=== PATIENT | male | born 1945 | race Caucasian/White ===

== ENCOUNTER 2017-12-24 06:44 | Day surgery (SDC) | payer OTHER ==
[2017-12-24] MEDS ORDERED: ASPIRIN EC 325 MG TAB PO ONE (06:50)
[2017-12-24] MEDS ORDERED: methylPREDNISolone SOD SUCC 125 MG/2 ML VIAL IVP ONE (06:50)
[2017-12-24] MEDS ORDERED: DIAZEPAM 5 MG TAB PO ONE (06:50)
[2017-12-24] MEDS ORDERED: NS 1,000 ML IV ONE (06:50)
[2017-12-24] MEDS ORDERED: FAMOTIDINE 20 MG/NACL 50 ML IV ONE (06:50)
--- NOTE | 2017-12-24 07:29 | CPEKG ---
Heart Rate: 77 RR Interval: 779 P-R Interval: 180 QRSD Interval: 80 QT Interval: 384 QTC Interval: 435 P [place]: 68 QRS [place]: -5 T Wave [place]: 55 EKG Severity - BORDERLINE ECG - EKG Impression: SINUS RHYTHM EKG Impression: BORDERLINE R WAVE PROGRESSION, ANTERIOR LEADS Electronically Signed By: Harshad Rhoades 24-Dec-2017 13:06:53
[2017-12-24 07:58] LABS: PLATELET COUNT 237 10^3/uL (150-400)
[2017-12-24 08:11] LABS: INR 1.12 (0.83-1.16); PROTIME(PATIENT) 14.6 SEC (12.0-15.0)
--- NOTE | 2017-12-24 08:35 | PDHPUP ---
History & Physical Update H&P update statement: This history and physical update is based on an assessment of the patient which was completed after admission or registration (within 24 hours), but prior to the surgery/procedure. H&P update: H&P reviewed & patient examined, no change in patient's condition since H&P completed
--- NOTE | 2017-12-24 08:36 | PDPROPOC ---
Sedation Plan of Care Sedation Plan of Care: vital signs stable, mental status noted, patient educated of risks, benefits, alternatives, patient can tolerate sedation ASA Classification: ASA 2 Planned drugs: fentanyl, midazolam Mallampati Score: Class 2 Mallampati Reference Image: Patient passed 3-3-2 rule?: Yes
[2017-12-24] MEDS ORDERED: LIDOCAINE 1% 300 MG/30 ML SDV ONE (08:44)
[2017-12-24] MEDS ORDERED: fentaNYL 100 MCG/2 ML INJ ONE (08:44)
[2017-12-24] MEDS ORDERED: MIDAZOLAM 2 MG/2 ML VIAL ONE (08:45)
[2017-12-24] MEDS ORDERED: IOPAMIDOL (ISOVUE-370) 150 ML BTL IV ONE (08:45)
[2017-12-24] MEDS ORDERED: ALBUTEROL INH PREPACK MDI TAKEHOME PRN (10:02)
[2017-12-24] MEDS ORDERED: ATROPINE SULFATE 1 MG/10 ML SYR IVP PRN (10:02)
[2017-12-24] MEDS ORDERED: NITROGLYCERIN 0.4 MG BTL SL PRN (10:02)
[2017-12-24] MEDS ORDERED: HYDROCODONE/APAP 5/325 TAB PO PRN (10:02)
[2017-12-24] MEDS ORDERED: OXYCODONE/APAP 5/325 TAB PO PRN (10:02)
[2017-12-24] MEDS ORDERED: ONDANSETRON 4 MG/2 ML VIAL IVP PRN (10:02)
--- NOTE | 2017-12-24 10:15 | CPIP ---
[f rep st] INVASIVE CARDIAC PROCEDURE DATE OF PROCEDURE: 12/24/2017 PROCEDURE: 1. Coronary angiography. 2. Left ventriculography. INDICATION: Abnormal stress test. ACCESS: Patient was prepped and draped in the sterile fashion. 1% lidocaine was used to anesthetize the right inguinal region. A 6-[place] introducer sheath was placed selectively into the right commo n femoral artery via modified Seldinger technique. CORONARY ANGIOGRAPHY: A 6-[place] JL4 was advanced to the left main coronary artery and images obtain ed. The left main coronary artery bifurcated into an LAD and circumflex coronary arteries. The left main coronary artery appeared normal. The left anterior descending coronary artery gave rise to 1 p rominent diagonal branch as well as several smaller diagonal arteries. The left anterior descending c oronary artery was 100% occluded in the mid vessel just after the takeoff of the first diagonal arter y. The left anterior descending coronary artery is being filled by [id number] as well as right-to- left collaterals. The circumflex coronary artery is a large vessel but is nondominant. The circumfl ex coronary artery has mild diffuse disease throughout. There was no stenosis greater than 10% to 20 %. The first OM artery was a large vessel. The first OM artery has a proximal 30% to 40% stenosis p resent. A 6-[place] JR4 was advanced to the right coronary artery and images obtained. The right cor onary artery was dominant. The right coronary artery had a proximal 30% stenosis present. LEFT VENTRICULOGRAPHY: A 6-[place] pigtail catheter was advanced in the left ventricle and images obt ained. Left ventricle is normal in size. Left ventricle had mildly reduced systolic function with a n estimated ejection fraction of approximately 50%. The anterior wall appeared to be mildly hypokine tic. COMPLICATIONS: None. CONCLUSIONS: 1. MAINTENANCE ASSOCIATE of the mid LAD. 2. [id number]-[id number] coronary artery disease involving the right coronary artery and circumflex coron dipti artery. 3. Mildly reduced LV systolic function with an estimated ejection fraction of 50%. 4. Plan is for medical management. /[id number]/MODL
[2017-12-24] MEDS ORDERED: METOPROLOL TARTRATE 25 MG TAB PO SCH (21:00)
[2017-12-25] MEDS ORDERED: ASPIRIN 81 MG CHEWABLE TAB PO SCH (09:00)
[2017-12-25] MEDS ORDERED: LISINOPRIL 20 MG TAB PO SCH (09:00)
[2017-12-25] MEDS ORDERED: CHOLECALCIFEROL VIT D3 1,000 UNITS TAB PO SCH (09:00)
[2017-12-25] MEDS ORDERED: NON-FORMULARY NEW DRUG (Ranitidine Hcl [Zantac] 150 MG) PO SCH (09:00)
[2017-12-25] MEDS ORDERED: ATORVASTATIN CALCIUM 20 MG TAB PO SCH (09:00)
== END 2017-12-24 14:29 | disposition home or self-care (01) ==
LOC: FCATH 06:44
PROVIDERS: ATTEND Internal Medicine Cardiovascular Disease
PROC: B2111ZZ Fluoroscopy of Multiple Coronary Arteries using Low Osmolar Contrast (ICD-10-PCS; principal; 2017-12-24)
PROC: B2151ZZ Fluoroscopy of Left Heart using Low Osmolar Contrast (ICD-10-PCS; principal; 2017-12-24)
PROC: 4A023N7 Measurement of Cardiac Sampling and Pressure, Left Heart, Percutaneous Approach (ICD-10-PCS; principal; 2017-12-24)
DX: I25.82 Chronic total occlusion of coronary artery (principal); I25.10 Atherosclerotic heart disease of native coronary artery without angina pectoris; R94.39 Abnormal result of other cardiovascular function study; R94.31 Abnormal electrocardiogram [ECG] [EKG]; R53.83 Other fatigue; Z79.82 Long term (current) use of aspirin
CPT/HCPCS: J1200; J1644; J2250; J2930; J3010; Q9967